=== PATIENT | male | born 1995 ===

== ENCOUNTER 2016-09-26 09:35 | Observation (INO) | payer OTHER ==
[2016-09-26 09:42] VITALS: BMI 28.5
--- NOTE | 2016-09-26 10:15 | ED PDOC ---
HPI: CCC, URI, Sore Throat Time Seen by Provider: 09/26/16 09:45 Chief Complaint (Nursing): ENT Problem Chief Complaint (Provider): sore throat History Per: Patient History/Exam Limitations: no limitations Onset/Duration Of Symptoms: Days (x 2 ) Additional Complaint(s): Louis Ferrera is a 21 year old male, with no previous medical history, who presents to the ED with complaints of a sore throat associated with coughing and fever ongoing for 2 days. Patient denies any shortness of breath. Reports being unable to speak today but is able to swallow his saliva. PMD: none provided Past Medical History Reviewed: Historical Data, Nursing Documentation, Vital Signs Vital Signs: Last Vital Signs Temp 98 F 09/26/16 09:41 Pulse 66 09/26/16 09:41 Resp 16 09/26/16 09:41 BP 122/66 09/26/16 09:41 Pulse Ox 98 09/26/16 10:18 - Medical History PMH: Arthritis, Asthma, Gastritis Denies: HIV, Chronic Kidney Disease - Family History Family History: States: Unknown Family Hx - Home Medications Home Medications: Ambulatory Orders Medication Instructions Recorded Ibuprofen [Motrin] 600 mg PO Q6 PRN #20 tab 04/13/14 Magnesium Citrate [Citrate of Mag] 100 ml PO BID PRN #300 bottle 04/13/14 Oxycodone HCl/Acetaminophen 1 tab PO Q4 PRN #8 tab 04/13/14 [Percocet 325 mg-5 mg] Phosphate Enema [Fleet Enema 135 133 ml RC BID PRN #3 nma 04/13/14 Ml] Cyclobenzaprine HCl [Flexeril] 10 mg PO Q8H PRN #15 tab 08/07/14 Lidocaine [Lidoderm] 1 patch TP DAILY PRN #30 tdm 08/07/14 oxyCODONE/Acetaminophen [Percocet 1 tab PO QID PRN #22 tab 08/07/14 5/325 mg Tab] Lactulose 30 ml PO BID PRN #8 oz 09/23/14 Penicillin VK [Pen-Vee K] 2 tab PO BID #28 tab 11/24/14 Metoclopramide [Reglan] 10 mg PO Q8 PRN #20 tab 03/25/15 Naproxen [Naprosyn] 500 mg PO BID PRN #30 tab 03/25/15 Naproxen [Naprosyn] 500 mg PO BID PRN #15 tablet 11/02/15 Penicillin VK [Pen-Vee K] 500 mg PO QID #28 tab 11/02/15 - Allergies Allergies/Adverse Reactions: Allergies Allergy/AdvReac Type Severity Reaction Status Date / Time No Known Allergies Allergy Verified 11/02/15 13:36 Review of Systems ROS Statement: Except As Marked, All Systems Reviewed And Found Negative Constitutional: Positive for: Fever, Chills ENT: Positive for: Throat Pain Respiratory: Positive for: Cough. Negative for: Shortness of Breath Physical Exam - Reviewed Nursing Documentation Reviewed: Yes Vital Signs Reviewed: Yes - Physical Exam Appears: Positive for: Well, Non-toxic, No Acute Distress Head Exam: Positive for: ATRAUMATIC, NORMAL INSPECTION, NORMOCEPHALIC Skin: Positive for: Normal Color, Warm, Dry Eye Exam: Positive for: EOMI, Normal appearance, PERRL ENT: Positive for: Pharyngeal Erythema. Negative for: Other (peritonsilar abscess, deviation of uvula or trismus ) Neck: Positive for: Normal, Painless ROM Cardiovascular/Chest: Positive for: Regular Rate, Rhythm Respiratory: Positive for: CNT, Normal Breath Sounds Gastrointestinal/Abdominal: Positive for: Normal Exam, Bowel Sounds, Soft Back: Positive for: Normal Inspection Extremity: Positive for: Normal ROM Neurologic/Psych: Positive for: Alert, Oriented - Laboratory Results Result Diagrams: 09/26/16 10:21 09/26/16 10:21 - ECG O2 Sat by Pulse Oximetry: 98 (RA) Pulse Ox Interpretation: Normal Medical Decision Making Medical Decision Making: Initial Plan: * CT neck soft tissue w/ contrast * labs * rapid strep * reevaluation Scribe Attestation: Documented by Cristal Sexton, acting as a scribe for Ruiz Foster MD. Provider Scribe Attestation: All medical record entries made by the Scribe were at my direction and personally dictated by me. I have reviewed the chart and agree that the record accurately reflects my personal performance of the history, physical exam, medical decision making, and the department course for this patient. I have also personally directed, reviewed, and agree with the discharge instructions and disposition. Disposition - Clinical Impression Clinical Impression: Tonsillitis - Patient ED Disposition Is Patient to be Admitted: Yes - Disposition Disposition Time: 13:42 Condition: FAIR Forms: [facility] ([place]) - Pt Status Changed To: Hospital Disposition Of: Observation - POA Present On Arrival: None
[2016-09-26 10:27] LABS: BASO % 0.6 % (0.0-2.0); EOS # 0.3 K/uL (0.0-0.7); EOS % 3.8 % (0.0-4.0); HEMOGLOBIN 15.3 g/dL (12.0-18.0); LYMPH # 0.8 K/uL (1.0-4.3); LYMPH % 11.8 % (20.0-40.0); MEAN CELL VOLUME 98.2 fl (80.0-94.0); MEAN CORPUSCULAR HEMOGLOBIN 32.9 pg (27.0-31.0); MEAN CORPUSCULAR HGB CONC 33.5 g/dL (33.0-37.0); MEAN PLATELET VOLUME 7.7 fl (7.2-11.7); MONO # 0.9 K/uL (0.0-0.8); MONO % 12.2 % (0.0-10.0); NEUT % 71.6 % (50.0-75.0); RBC 4.65 Mil/uL (4.40-5.90); RED CELL DISTRIBUTION WIDTH 13.8 % (11.5-14.5)
[2016-09-26 10:40] LABS: ALB/GLOB RATIO 1.5 (1.0-2.1); ALBUMIN 4.6 g/dL (3.5-5.0); ALT/SGPT 37 U/L (21-72); AST/SGOT 22 U/L (17-59); BLOOD UREA NITROGEN 14 mg/dl (9-20); CALCIUM 9.4 mg/dL (8.4-10.2); GFR AFRICAN-AMERICAN > 60; GFR NON-AFRICAN AMERICAN > 60
[2016-09-26] MEDS ORDERED: Iohexol 300 100 ML IJ ONE (11:57)
[2016-09-26] MEDS ORDERED: Sodium Chloride 0.9% 50 ML IV ONE (11:57)
--- NOTE | 2016-09-26 12:49 | CT ---
PROCEDURE: CT NECK WITH CONTRAST HISTORY: peritonsilar abscess COMPARISON: 01/19/16 TECHNIQUE: CT of the neck with intravenous contrast. Coronal and sagittal reformats generated. Intravenous contrast dose: 100 cc of Omnipaque 350 Radiation dose: DLP 531 mGy-cm This CT exam was performed using one or more of the following dose reduction techniques: Automated exposure control, adjustment of the mA and/or kV according to patient size, and/or use of iterative reconstruction technique. FINDINGS: NASOPHARYNX: Unremarkable. SUPRAHYOID NECK: Severely enlarged and edematous adenoids and lingual tonsils. Marked airway narrowing. No fluid collection/abscess. INFRAHYOID NECK: Unremarkable larynx, hypopharynx, and supraglottic space. Vocal cords intact. MASS: None. GLANDS: Parotid and submandibular glands unremarkable. Normal size thyroid gland, without nodule. LYMPH NODES: Normal. No lymphadenopathy. CERVICAL SPINE: No fracture or focal lesion. VASCULAR STRUCTURES: Unremarkable. OTHER FINDINGS: None. IMPRESSION: Severely enlarged and edematous adenoids and lingual tonsils. Marked airway narrowing. No fluid collection/abscess.
[2016-09-26] MEDS ORDERED: Clindamycin 600 MG in Sodium Chloride 0.9% 100 ML IVPB ONE (12:54)
--- NOTE | 2016-09-26 15:05 | CP.PCM.HP ---
History of Present Illness - History of Present Illness History of Present Illness: 21 yo male admitted previously because of severe epiglotitis came complaining of severe sore throat since yesterday. His sore throat was so severe patient have difficulty talking and swallowing. Patient could only take liquid. Denied fever/chills, SOB, chest pain or vomiting. Present on Admission - Present on Admission Any Indicators Present on Admission: No History of DVT/PE: No History of Uncontrolled Diabetes: No Urinary Catheter: No Decubitus Ulcer Present: No Review of Systems - Review of Systems All systems: reviewed and no additional remarkable complaints except (aside from those mentioned above, 12 point system review were negative by me) Past Patient History - Infectious Disease Hx of Infectious Diseases: None - Tetanus Immunizations Tetanus Immunization: Unknown - Past Medical History & Family History Past Medical History?: Yes Past Family History: Reviewed and not pertinent - Past Social History Smoking Status: Light Smoker < 10 Cigarettes Daily Alcohol: None Drugs: Denies - CARDIAC Hx Cardiac Disorders: No - PULMONARY Hx Asthma: Yes - NEUROLOGICAL Hx Neurological Disorder: No - HEENT Hx HEENT Problems: No - RENAL Hx Chronic Kidney Disease: No - ENDOCRINE/METABOLIC Other/Comment: enlarged spleen - HEMATOLOGICAL/ONCOLOGICAL Hx Human Immunodeficiency Virus (HIV): No - INTEGUMENTARY Hx Dermatological Problems: No - MUSCULOSKELETAL/RHEUMATOLOGICAL Hx Arthritis: Yes - GASTROINTESTINAL Hx Gastritis: Yes - GENITOURINARY/GYNECOLOGICAL Hx Genitourinary Disorders: No - PSYCHIATRIC Hx Psychophysiologic Disorder: No Hx Substance Use: No - SURGICAL HISTORY Other/Comment: tooth injury 1 year ago - ANESTHESIA Hx Anesthesia: No Meds Allergies/Adverse Reactions: Allergies Allergy/AdvReac Type Severity Reaction Status Date / Time No Known Allergies Allergy Verified 11/02/15 13:36 Physical Exam - Constitutional Appears: No Acute Distress - Head Exam Head Exam: ATRAUMATIC - Eye Exam Eye Exam: absent: Scleral icterus - ENT Exam ENT Exam: Mucous Membranes Moist. absent: Normal Oropharynx (oropharynx inflammed) - Neck Exam Neck exam: Negative for: Lymphadenopathy, Meningismus - Respiratory Exam Respiratory Exam: absent: Rhonchi, Wheezes, Respiratory Distress - Cardiovascular Exam Cardiovascular Exam: REGULAR RHYTHM, +S1, +S2 - GI/Abdominal Exam GI & Abdominal Exam: Soft. absent: Tenderness - Rectal Exam Rectal Exam: Deferred - Extremities Exam Extremities exam: Negative for: pedal edema - Back Exam Back exam: absent: tenderness - Neurological Exam Neurological exam: Alert, Oriented x3 - Psychiatric Exam Psychiatric exam: Normal Affect - Skin Skin Exam: Dry, Intact Results - Vital Signs Recent Vital Signs: Last Vital Signs Temp 98 F 09/26/16 09:41 Pulse 66 09/26/16 09:41 Resp 16 09/26/16 09:41 BP 122/66 09/26/16 09:41 Pulse Ox 98 09/26/16 13:42 - Labs Result Diagrams: 09/26/16 10:21 09/26/16 10:21 Assessment & Plan (1) Tonsillitis Status: Acute Comment: place on observation in med/surg. start IV hydration with NSS 100cc/ hr. Rocephin 1gm IV daily. SoluMedrol 40mm IV q 8hrs. swish and swallow 5cc of Viscous Lidocaine. ENT consult with Dr Thomas (called by ER)
[2016-09-26] MEDS: Sodium Chloride 0.9% 1,000 ML IV SCH (17:10)
[2016-09-26] MEDS ORDERED: Pneumococcal 23-Valent Vaccine IM ONE (17:30)
[2016-09-26] MEDS: methylPREDNISolone 40 MG in Sodium Chloride 0.9% 50 ML IV SCH (19:17)
[2016-09-27] MEDS: methylPREDNISolone 40 MG in Sodium Chloride 0.9% 50 ML IV SCH ×2 (00:13→08:50)
[2016-09-27] MEDS: Sodium Chloride 0.9% 1,000 ML IV SCH (00:14)
--- NOTE | 2016-09-27 04:01 | CON ---
DATE: 09/26/2016 REASON FOR CONSULTATION: Throat pain. HISTORY OF PRESENT ILLNESS: This is a 21-year-old male with multiple day history of throat pain, worsening, it is constant, moderate in intensity. There is no hoarseness, no shortness of breath. PAST MEDICAL HISTORY: As noted in the chart by me. MEDICATIONS: As noted in the chart by me. PHYSICAL EXAMINATION HEENT: Head atraumatic, normocephalic. Symmetric facial movements bilaterally. CONSTITUTIONAL: well fed, well-nourished. COMMUNICATION: Communicates appropriately. External nose and ear, no masses, no lesions, no erythema, no edema. Internal nose, deviated septum. No masses, no lesions, no erythema, no edema. ORAL CAVITY, OROPHARYNX: There is mild erythema, edema of the tonsils. Lips and gums, no masses, no lesions, no erythema, no edema. THYROID: No thyromegaly. No goiter. LYMPH NODE: No lymphadenopathy of the neck. NECK: Supple. LABORATORY DATA: CAT scan was noted by me, it showed large tonsils. ASSESSMENT: 1. Tonsillitis. 2. Deviated septum. PLAN: Since the patient had pain and is saying that he has decreased p.o. intake, should admit to the hospital. Put on IV antibiotics and steroids. If patient can take p.o, can be discharged to home tomorrow. Dylan Thomas MD MTDD
[2016-09-27 07:25] LABS: BASO % 0.1 % (0.0-2.0); HEMOGLOBIN 15.1 g/dL (12.0-18.0); LYMPH # 0.7 K/uL (1.0-4.3); LYMPH % 4.1 % (20.0-40.0); MEAN CELL VOLUME 97.5 fl (80.0-94.0); MEAN CORPUSCULAR HEMOGLOBIN 33.1 pg (27.0-31.0); MEAN PLATELET VOLUME 8.2 fl (7.2-11.7); MONO # 0.4 K/uL (0.0-0.8); MONO % 2.6 % (0.0-10.0); NEUT # 15.4 K/uL (1.8-7.0); NEUT % 93.2 % (50.0-75.0); PLATELET COUNT 193 K/uL (130-400); RBC 4.57 Mil/uL (4.40-5.90); RED CELL DISTRIBUTION WIDTH 13.7 % (11.5-14.5); WHITE BLOOD COUNT 16.6 K/uL (4.8-10.8)
[2016-09-27 07:54] LABS: BLOOD UREA NITROGEN 11 mg/dl (9-20); CALCIUM 9.6 mg/dL (8.4-10.2); GFR AFRICAN-AMERICAN > 60; GFR NON-AFRICAN AMERICAN > 60
[2016-09-27] MEDS ORDERED: Enoxaparin 40 mg Syringe SC SCH (09:00)
[2016-09-27 09:33] VITALS: BP 128/71; PULSE 86; RESP 20; TEMP 98.1; O2SAT 99
[2016-09-27 10:45] LABS: BANDS 3 % (0-2); LYMPHOCYTE 4 % (20-50); MONOCYTE 6 % (0-10); NEUTROPHIL 87 % (42-75); PLATELET ESTIMATE NORMAL (NORMAL); TOTAL CELLS COUNTED 100; TOXIC GRANULATION PRESENT
[2016-09-27 10:46] LABS: ANISOCYTOSIS SLIGHT; LARGE PLATELETS PRESENT; POIKILOCYTOSIS SLIGHT; TEARDROP CELLS SLIGHT
--- NOTE | 2016-09-27 12:53 | CP.PCM.DIS ---
Provider - Provider Date of Admission: 09/26/16 13:40 Attending physician: Akshat Navarro MD Consults: Dr Thomas Time Spent in preparation of Discharge (in minutes): 35 Diagnosis - Discharge Diagnosis (1) Tonsillitis Status: Acute Comment: improved. Augmentin 875/125 PO BID Hospital Course - Lab Results Lab Results: Most Recent Lab Values WBC 16.6 K/uL (4.8-10.8) H D 09/27/16 06:00 RBC 4.57 Mil/uL (4.40-5.90) 09/27/16 06:00 Hgb 15.1 g/dL (12.0-18.0) 09/27/16 06:00 Hct 44.6 % (35.0-51.0) 09/27/16 06:00 MCV 97.5 fl (80.0-94.0) H 09/27/16 06:00 MCH 33.1 pg (27.0-31.0) H 09/27/16 06:00 MCHC 34.0 g/dL (33.0-37.0) 09/27/16 06:00 RDW 13.7 % (11.5-14.5) 09/27/16 06:00 Plt Count 193 K/uL (130-400) 09/27/16 06:00 MPV 8.2 fl (7.2-11.7) 09/27/16 06:00 Neut % (Auto) 93.2 % (50.0-75.0) H 09/27/16 06:00 Lymph % (Auto) 4.1 % (20.0-40.0) L 09/27/16 06:00 [place] % (Auto) 2.6 % (0.0-10.0) 09/27/16 06:00 Eos % (Auto) 0.0 % (0.0-4.0) 09/27/16 06:00 Baso % (Auto) 0.1 % (0.0-2.0) 09/27/16 06:00 Neut # 15.4 K/uL (1.8-7.0) H 09/27/16 06:00 Lymph # 0.7 K/uL (1.0-4.3) L 09/27/16 06:00 Grayson # 0.4 K/uL (0.0-0.8) 09/27/16 06:00 Eos # 0.0 K/uL (0.0-0.7) 09/27/16 06:00 Baso # 0.0 K/uL (0.0-0.2) 09/27/16 06:00 Neutrophils % (Manual) 87 % (42-75) H 09/27/16 06:00 Band Neutrophils % 3 % (0-2) H 09/27/16 06:00 Lymphocytes % (Manual) 4 % (20-50) L 09/27/16 06:00 Monocytes % (Manual) 6 % (0-10) 09/27/16 06:00 Toxic Granulation Present 09/27/16 06:00 Platelet Estimate Normal (NORMAL) 09/27/16 06:00 Large Platelets Present 09/27/16 06:00 Poikilocytosis (manual Slight 09/27/16 06:00 Anisocytosis (manual) Slight 09/27/16 06:00 Tear Drop Cells Slight 09/27/16 06:00 Sodium 139 mmol/l (132-148) 09/27/16 06:00 Potassium 4.1 MMOL/L (3.6-5.0) 09/27/16 06:00 Chloride 105 mmol/L (98-107) 09/27/16 06:00 Carbon Dioxide 24 mmol/L (22-30) 09/27/16 06:00 Anion Gap 15 (10-20) 09/27/16 06:00 BUN 11 mg/dl (9-20) 09/27/16 06:00 Creatinine 0.8 mg/dL (0.8-1.5) 09/27/16 06:00 Est GFR ( Amer) > 60 09/27/16 06:00 Est GFR (Non-Af Amer) > 60 09/27/16 06:00 Random Glucose 127 mg/dL (75-110) H 09/27/16 06:00 Calcium 9.6 mg/dL (8.4-10.2) 09/27/16 06:00 Total Bilirubin 1.2 mg/dl (0.2-1.3) 09/26/16 10:21 AST 22 U/L (17-59) 09/26/16 10:21 ALT 37 U/L (21-72) 09/26/16 10:21 Alkaline Phosphatase 80 U/L (38-126) 09/26/16 10:21 Total Protein 7.7 G/DL (6.3-8.2) 09/26/16 10:21 Albumin 4.6 g/dL (3.5-5.0) 09/26/16 10:21 Globulin 3.1 gm/dL (2.2-3.9) 09/26/16 10:21 Albumin/Globulin Ratio 1.5 (1.0-2.1) 09/26/16 10:21 Grp A Beta Strep Ag Negative (NEGATIVE) 09/26/16 10:21 - Hospital Course Hospital Course: 21 yo male admitted previously because of severe epiglotitis came in complaining of severe sore throat, so severe that he had problem talking and swallowing. He was started on IV Rocephin and SoluMedrol and did well. Today patient was able to talk fluently and able to swallow solid food. Patient discharged in stable condition and sent home with oral Augmentin to be taken for a week. Discharge Exam - Head Exam Head Exam: ATRAUMATIC - Eye Exam Eye Exam: absent: Scleral icterus - ENT Exam ENT Exam: Mucous Membranes Moist - Respiratory Exam Respiratory Exam: absent: Wheezes, Respiratory Distress - Cardiovascular Exam Cardiovascular Exam: REGULAR RHYTHM, +S1, +S2 - GI/Abdominal Exam GI & Abdominal Exam: Soft. absent: Tenderness - Rectal Exam Rectal Exam: Deferred - Back Exam Back exam: NORMAL INSPECTION - Neurological Exam Neurological exam: Alert, Oriented x3 - Psychiatric Exam Psychiatric exam: Normal Affect - Skin Skin Exam: Dry, Intact Discharge Plan - Discharge Medications Prescriptions: Amoxicillin/Clavulanate [Augmentin 875 MG-125 MG] 1 tab PO BID #14 tab - Follow Up Plan Condition: FAIR Disposition: HOME/ ROUTINE
== END 2016-09-27 16:18 | disposition home or self-care (01) ==
LOC: H.ER 09:35 → H.ERHOLD 13:40 → H.MEDSURG1 15:12
DX: J03.90 Acute tonsillitis, unspecified (principal); J34.2 Deviated nasal septum; J45.909 Unspecified asthma, uncomplicated; F17.210 Nicotine dependence, cigarettes, uncomplicated; K29.70 Gastritis, unspecified, without bleeding; M19.90 Unspecified osteoarthritis, unspecified site; Z23 Encounter for immunization

== ENCOUNTER 2017-08-22 13:44 | Emergency (ER) | payer OTHER ==
[2017-08-22 13:44] VITALS: BMI 28.5
[2017-08-22 13:53] VITALS: RESP 18; O2SAT 100
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
[2017-08-22 14:55] VITALS: BP 128/72; PULSE 75; TEMP 98
--- NOTE | 2017-08-22 16:50 | RAD ---
PROCEDURE: LEFT HIP WITH PELVIS RADIOGRAPHS HISTORY: trauma COMPARISON: Abdomen pelvis CT 02/10/2015. TECHNIQUE: Frontal views of the pelvis lymph node and submitted as well as frog-leg lateral views of the left hip. FINDINGS: Pelvic ring is intact without fracture or distraction of the sacroiliac joints. The pubic symphysis is intact. No fracture or dislocation is seen at the left hip joint either. No destructive bony lesion identified. Local soft tissues reflect prominent retained fecal material within the colon including the rectum. Consider potential constipation. IMPRESSION: No acute fracture or dislocation involving left hip joint or the pelvic bony anatomy as imaged. Incidental note is made of potential constipation. Clinically correlate.
== END 2017-08-22 14:55 | disposition home or self-care (01) ==
LOC: H.ER 13:44
DX: M25.552 Pain in left hip (principal)
CPT/HCPCS: 73502; 96372; 99283; J1885

== ENCOUNTER 2018-06-14 18:13 | Emergency (ER) | payer OTHER ==
[2018-06-14 18:13] VITALS: BMI 28.5
[2018-06-14 19:06] VITALS: RESP 16; O2SAT 99
[2018-06-14] MEDS ORDERED: Sodium Chloride 0.9% 1,000 ML IV STA (19:49)
[2018-06-14 21:03] LABS: BASO % 0.5 % (0.0-2.0); EOS # 0.2 K/uL (0.0-0.7); EOS % 3.7 % (0.0-4.0); HEMOGLOBIN 14.1 g/dL (12.0-18.0); LYMPH # 1.5 K/uL (1.0-4.3); LYMPH % 23.6 % (20.0-40.0); MEAN CELL VOLUME 96.3 fl (80.0-94.0); MEAN CORPUSCULAR HEMOGLOBIN 32.9 pg (27.0-31.0); MEAN CORPUSCULAR HGB CONC 34.1 g/dL (33.0-37.0); MEAN PLATELET VOLUME 8.3 fl (7.2-11.7); MONO # 0.6 K/uL (0.0-0.8); MONO % 9.9 % (0.0-10.0); NEUT # 4.1 K/uL (1.8-7.0); NEUT % 62.3 % (50.0-75.0); NRBC % 0.1 % (0.0-0.0); RBC 4.28 Mil/uL (4.40-5.90); RED CELL DISTRIBUTION WIDTH 13.2 % (11.5-14.5); WHITE BLOOD COUNT 6.6 K/uL (4.8-10.8)
[2018-06-14 21:10] LABS: ALB/GLOB RATIO 1.7 (1.0-2.1); ALBUMIN 4.7 g/dL (3.5-5.0); ALT/SGPT 21 U/L (21-72); AST/SGOT 24 U/L (17-59); BLOOD UREA NITROGEN 13 mg/dl (9-20); CALCIUM 9.4 mg/dL (8.4-10.2); GFR NON-AFRICAN AMERICAN > 60; LIPASE 32 U/L (23-300)
--- NOTE | 2018-06-14 21:13 | ED PDOC ---
HPI: Abdomen Time Seen by Provider: 06/14/18 19:40 Chief Complaint (Nursing): Abdominal Pain Chief Complaint (Provider): Abdominal Pain History Per: Patient History/Exam Limitations: no limitations Onset/Duration Of Symptoms: Days (x1.5 weeks) Additional Complaint(s): Patient is a 23 year old male with a past medical history of asthma, chronic constipation, questionable Crohn's disease, who presents to the emergency department complaining of abdominal pain. He reports that he is getting shooting lower abdominal pain for the past x1.5 weeks. Patient states the pain was so severe today that he doubled over. He further admits that he has intermittent constipation since he was a child and states that he has not had a bowel movement in about x2 weeks, which is normal for him. Patient has had a slight decrease in appetite but has been able to tolerate fluids. He denies any nausea, vomiting, fever, or urinary symptoms. Of note, patient states he was diagnosed with Crohn's disease at the age of 11 but has not been told since even after seeing other gastroenterologists. PMD: Topher Doyle Past Medical History Reviewed: Historical Data, Nursing Documentation, Vital Signs Vital Signs: Last Vital Signs Temp 98.7 F 06/14/18 19:03 Pulse 83 06/14/18 19:03 Resp 16 06/14/18 19:03 BP 132/73 06/14/18 19:03 Pulse Ox 99 06/14/18 19:03 - Medical History PMH: Asthma, Crohn's Disease (questionable), Gastritis Denies: Arthritis, HIV, Chronic Kidney Disease - Surgical History Surgical History: No Surg Hx - Family History Family History: States: Unknown Family Hx - Social History Current smoker - smoking cessation education provided: Yes Alcohol: None Drugs: Denies - Immunization History Hx Tetanus Toxoid Vaccination: Yes Hx Influenza Vaccination: No Hx Pneumococcal Vaccination: No - Home Medications Home Medications: Ambulatory Orders Medication Instructions Recorded Penicillin VK [Penicillin VK Tab] 2 tab PO BID #28 tab 11/24/14 Amoxicillin/Clavulanate [Augmentin 1 tab PO BID #14 tab 09/27/16 875 MG-125 MG] Cyclobenzaprine [Cyclobenzaprine 10 mg PO TID PRN #20 tab 08/22/17 HCl] Naproxen [Naprosyn] 500 mg PO BID #20 tab 06/24/18 Polyethylene Glycol 3350 [Miralax] 17 gm PO DAILY PRN #1 bottle 06/14/18 Psyllium Husk (with Sugar) 1 scoopful PO DAILY #1 bottle 06/14/18 [Metamucil Powder] - Allergies Allergies/Adverse Reactions: Allergies Allergy/AdvReac Type Severity Reaction Status Date / Time No Known Allergies Allergy Verified 06/14/18 19:03 Review of Systems ROS Statement: Except As Marked, All Systems Reviewed And Found Negative Constitutional: Negative for: Fever Gastrointestinal: Positive for: Abdominal Pain. Negative for: Nausea, Vomiting Genitourinary Male: Negative for: Dysuria, Frequency, Incontinence, Hematuria Physical Exam - Reviewed Nursing Documentation Reviewed: Yes Vital Signs Reviewed: Yes - Physical Exam Appears: Positive for: Non-toxic, In Acute Distress (mild painful distress) Head Exam: Positive for: ATRAUMATIC, NORMOCEPHALIC Skin: Positive for: Warm, Dry Eye Exam: Positive for: EOMI, PERRL ENT: Positive for: Other (tacky mucus membranes) Neck: Positive for: Painless ROM, Supple Cardiovascular/Chest: Positive for: Regular Rate, Rhythm. Negative for: Murmur Respiratory: Positive for: Normal Breath Sounds. Negative for: Respiratory Distress Gastrointestinal/Abdominal: Positive for: Bowel Sounds (hypoactive), Tenderness (diffuse), Guarding (voluntary). Negative for: Mass Back: Positive for: Normal Inspection. Negative for: Decreased ROM Extremity: Positive for: Normal ROM. Negative for: Deformity Lymphatic: Negative for: Adenopathy Neurological/Psych: Positive for: Awake, Alert. Negative for: Motor/Sensory Deficits - Laboratory Results Result Diagrams: 06/14/18 20:13 06/14/18 20:13 - ECG O2 Sat by Pulse Oximetry: 99 (RA) Pulse Ox Interpretation: Normal Medical Decision Making Medical Decision Making: Time: 1948 Impression: Abdominal pain --Differential diagnosis includes but is not limited to constipation, gastritis, enteritis, or Crohn's disease exacerbation. Plan: --CMP --Lipase --CBC with differential --Obstructive Series xray --Sodium chloride 1,000 ml --Fleet Enema 135 ml [place] --Saline Lock --Reviewed obstructive series xray, which demonstrates a large amount of stool in colon, no air fluid levels. -- Fleet ordered 2130 Labs unremarkable. Pt reported that he had large bowel movement in ER. Feels better and eager to be discharged. Scribe Attestation: Documented by Magdaleno Carbajal, acting as a scribe Greyson William MD. Provider Scribe Attestation: All medical record entries made by the Scribe were at my direction and personally dictated by me. I have reviewed the chart and agree that the record accurately reflects my personal performance of the history, physical exam, medical decision making, and the department course for this patient. I have also personally directed, reviewed, and agree with the discharge instructions and disposition. Disposition - Clinical Impression Clinical Impression: Constipation - Disposition Referrals: Topher Doyle MD [Family Provider] - Disposition: Routine/Home Disposition Time: 21:30 Condition: IMPROVED Prescriptions: Polyethylene Glycol 3350 [Miralax] 17 gm PO DAILY PRN #1 bottle PRN Reason: Constipation Psyllium Husk (with Sugar) [Metamucil Powder] 1 scoopful PO DAILY #1 bottle Instructions: Constipation, Adult (DC)
[2018-06-14 22:08] VITALS: BP 122/62; PULSE 80; TEMP 98
--- NOTE | 2018-06-15 08:51 | RAD ---
Date of service: 06/14/2018 PROCEDURE: Radiographs of the chest and abdomen (obstructive series) HISTORY: abd pain COMPARISON: No prior. TECHNIQUE: AP radiograph of the chest, with upright and supine radiographs of the abdomen. 3 views obtained. FINDINGS: CHEST: Lungs: Clear. Cardiovascular: Normal size heart. No pulmonary vascular congestion. No aortic atherosclerotic calcification present Pleura: No pleural fluid. No pneumothorax. Other findings: None. ABDOMEN AND PELVIS: Bowel: Extensive stool throughout the colon suggested.. No evidence of mechanical obstruction. Free air: None. Bones: Unremarkable. Other findings: None. IMPRESSION: No pulmonary infiltrate. Extensive stool throughout the colon compatible with constipation. No evidence of mechanical bowel obstruction.
== END 2018-06-14 22:05 | disposition home or self-care (01) ==
LOC: H.ER 18:13
DX: K59.00 Constipation, unspecified (principal); F17.200 Nicotine dependence, unspecified, uncomplicated; J45.909 Unspecified asthma, uncomplicated; K50.90 Crohn's disease, unspecified, without complications; Z79.899 Other long term (current) drug therapy
CPT/HCPCS: 74022; 80053; 83690; 85025; 96360; 99283; J7030